=== PATIENT | male | born 1980 ===

== ENCOUNTER 2023-10-09 16:35 | Outpatient (REF) | payer OTHER, SELFPAY ==
[2023-10-09 21:56] LABS: COVID-19 PCR Negative (Negative); Influenza A PCR Negative (Negative); Influenza B PCR Negative (Negative); RSV PCR Negative (Negative); Source Nasopharynx
[2023-10-11 08:45] LABS: Lyme Ab w Rflx to Lyme Confirm Negative (Negative)
[2023-10-13 18:03] LABS: B. miyamotoi PCR Negative (Negative); Babesia divergens/MO-1 Negative (Negative); Babesia duncani Negative (Negative); Babesia microti Negative (Negative); Ehrlichia chaffeensis Negative (Negative); Ehrlichia ewingii/canis Negative (Negative); Ehrlichia muris eauclairensis Negative (Negative)
[2023-10-14 08:40] LABS: Anaplasma phagocytophilum Positive (Negative)
== END 2023-10-09 16:36 | disposition home or self-care (01) ==
LOC: NCHCN 16:35
PROVIDERS: Visit Provider Physician Assistant Medical
DX: R50.9 Fever, unspecified (principal); R07.0 Pain in throat; Z11.8 Encounter for screening for other infectious and parasitic diseases; Z20.828 Contact with and (suspected) exposure to other viral communicable diseases
CPT/HCPCS: 87637; 87798; 86618; 87070

== ENCOUNTER 2023-10-09 19:43 | Emergency (ER) | payer OTHER, SELFPAY ==
[2023-10-09 19:45] VITALS: BP 117/65; PULSE 78; RESP 18; TEMP 37.1; O2SAT 98
--- NOTE | 2023-10-09 20:42 | W.ED.GENAD ---
Discharge Plan Disposition Patient Disposition: Home Condition: Stable Discharge Details Clinical Impression: Fever, Anaplasmosis Primary Care Provider: Unknown,Unknown ED Provider: Radha Lindsay Home Meds and New Rx's Prescriptions: New doxycycline hyclate 100 mg capsule 100 mg PO BID 14 Days Qty: 28 0RF Rx Instructions: Take 1 tablet twice daily for the next 14 days. Discharge Instructions Instructions: Ehrlichia and Anaplasma Infections Additional Instructions: At this time your blood work does show evidence of tickborne illness. This most likely explains why you have been feeling poorly. You may stop the amoxicillin at this time and take only the doxycycline. Take it with yogurt or probiotic as prescribed. Follow up with primary care provider in 3-5 days for follow up regarding lab tests and further evaluation if needed. Return to ED sooner if any worsening fever greater than 100.8 not relieved by Tylenol or ibuprofen, vomiting , or concerns. No evidence of urinary tract infection. Please take Tylenol or Ibuprofen with food every 4-6 hours as needed for pain, fever and swelling. You should feel better after 3 to 5 days of antibiotic. Referrals: [facility] [Provider Group] - 1 week (To establish care here locally for primary care if desired) Primary Care Provider [Outside] - 5 days Discharge Data Discharge Date/Time-TO BE ENTERED AT DEPARTURE: 10/09/23 23:27 HPI General Mode of arrival: ambulatory. Date/Time Provider Initiated Documentation: 10/09/23 19:55. Limitations to Documentation: no limitations. Information obtained by: patient, RN notes reviewed and old records reviewed. HPI Narrative: 42-year-old male presents to the ER with a chief complaint of increased fatigue, fevers for the last 3 weeks. He reports that he is currently on day 3 of amoxicillin or penicillin from the dentist. He was seen at urgent care prior to arrival he states he had blood drawn with a tick and Lyme panel which is pending at this time. I do not have any record of that at this time. He is complaining of increased fatigue, mild headache, decreased appetite and diarrhea. No abscess noted on exam, posterior oropharynx erythemic no exudate he reports that he was just recently tested for COVID flu and strep which was negative. Lungs are clear to auscultation. Related Data Home Medications Medication Instructions Recorded Confirmed doxycycline hyclate 100 mg capsule 100 mg PO BID Anaplasmosis 14 days 10/09/23 #28 caps Previous Rx's Medication Instructions Recorded doxycycline hyclate 100 mg capsule 100 mg PO BID Anaplasmosis 14 days 10/09/23 #28 caps Allergies Allergy/AdvReac Type Severity Reaction Status Date / Time No Known Allergies Allergy Verified 10/09/23 19:50 General Stated Complaint: DentalOral JERMAN: 4 Review of Systems All systems reviewed & are unremarkable except as noted in HPI and below Exam Narrative Exam Narrative: Constitutional: Alert and oriented x3. Appears stated age. Normal body habitus. Head: Normocephalic, no trauma. Eyes: Pupils PERRL, Red reflex noted, EOM's intact. Eyelids symmetrical without lesions, discharge, or swelling. ENT: Bilateral TM's WNL, External ear normal to inspection, no mastoid TTP, swelling, or erythema, Nasal turbinates WNL, no nasal discharge. Normal dentition, Posterior pharynx slightly erythemic, no exudate. Chest: RRR, Normal S1, S2, distal pulses intact. Resp: Lungs clear to auscultation bilaterally, no wheezes, rales, or rhonchi. Abdomen: Soft, non-distended, Normoactive bowel sounds all 4 quads. Musculoskeletal: Normal gait, Moves all 4 extremities without difficulty. Skin: No suspicious rashes or lesions. Capillary refill less than 2 sec. Neurologic: Cranial nerves II-XII intact. Alert and oriented x 3. Motor: No deficits noted. Sensory: Intact bilaterally all 4 extremities. Hematologic/Lymphatic: No ecchymosis, no lymphadenopathy. Course Vital Signs Vital signs: Vital Signs Temperature 37.1 C 10/09/23 19:45 Pulse 78 10/09/23 19:45 Respiratory Rate 18 10/09/23 19:45 Blood Pressure 117/65 10/09/23 19:45 Pulse Oximetry 98 10/09/23 19:45 Temperature 37.1 C 10/09/23 19:45 Temperature Source Temporal Artery Scan 10/09/23 19:45 Pulse 78 10/09/23 19:45 Respiratory Rate 18 10/09/23 19:45 Respiratory Effort Normal, Non-Labored 10/09/23 19:49 Blood Pressure 117/65 10/09/23 19:45 Blood Pressure Position Sitting 10/09/23 19:45 Pulse Oximetry 98 10/09/23 19:45 Oxygen Delivery Method Room Air 10/09/23 19:45 Oxygen Flow Rate 0 10/09/23 19:45 Pain Level 0 10/09/23 19:57 Medical Decision Making 42-year-old male presents to the ER with a chief complaint of increased fatigue, fevers Tmax 102 for the last 3 weeks. He reports that he is currently on day 3 of amoxicillin or penicillin from the dentist. He was seen at urgent care prior to arrival he states he had blood drawn with a tick and Lyme panel which is pending at this time. I do not have any record of that at this time. He is complaining of increased fatigue, mild headache, decreased appetite and diarrhea. No abscess noted on exam, posterior oropharynx erythemic no exudate he reports that he was just recently tested for COVID flu and strep which was negative. Lungs are clear to auscultation. Differential diagnosis includes but not limited to viral illness, hepatitis, UTI, sinusitis, anaplasmosis, tick and Lyme, Workup ordered including CBC CMP blood cultures x 2 lactate and urinalysis. CMP shows normal sodium potassium, glucose 117 calcium 8.1, magnesium 1.9 AST 89 ALT 87 slightly elevated alk phos within normal limits, hepatitis panel added on due to elevated liver enzymes, informed by staff field engineer that patient is complaining of chills and has 100.1 temperature ibuprofen 800 mg ordered. CBC shows leukopenia, platelets are low at 58, lymphocytes low at 0.49, lactate 1.3 which is within normal limits. After review of labs with leukopenia and thrombocytopenia with elevated liver enzymes, clinical presentation is concerning for anaplasmosis. Given 100 mg of doxycycline IV piggyback, will give doxycycline 100 mg twice daily x 14 days. Given instructions on anaplasmosis and tickborne illnesses patient and family verbalized understanding all her questions were answered to the best my ability. At this time he has had a tick and Lyme panel already drawn from an offsite facility and this is pending at this time. Urinalysis shows trace blood no leukocytes no nitrites no evidence of UTI. Patient was discharged with instructions to follow-up closely with PCP regarding further care and treatment. He verbalized understanding. This text was generated using [employer] system, please disregard any oddities of phrase or misspellings. Lab Data Lab results reviewed: Yes I reviewed the patient's lab results. Labs: 10/09/23 21:00 Blood Blood Culture - Pending 10/09/23 21:21 Blood Blood Culture - Pending Laboratory Tests Range/Units 10/09/23 10/09/23 10/09/23 21:00 21:55 22:36 WBC (4.4-10.8) 10^3/uL 3.49 L RBC (4.36-5.78) 10^6/uL 4.86 Hgb (13.5-17.5) g/dL 14.8 Hct (40.0-50.0) % 43.5 MCV (80-95) fL 90 MCH (27.0-33.0) pg 30.5 MCHC (32.0-36.0) % 34.0 RDW (11.8-14.1) % 12.4 Plt Count (130-400) 10^3/uL 58 L MPV (8.0-11.0) fL 11.0 Immature Gran % See Differential Neutrophils % % 25.0 Band Neutrophils % % 52 Lymphocytes % % 13.0 Atypical Lymphs % % 1 Monocytes % % 6.0 Eosinophils % % 0.0 Basophils % % 0.0 Metamyelocytes % 3 Nucleated RBC % (0.0-0.3) % 0.0 Absolute Neutrophils (1.2-6.7) 10^3/uL 2.69 Absolute Lymphocytes (1.2-3.4) 10^3/uL 0.49 L Absolute Monocytes (0.1-0.8) 10^3/uL 0.21 Absolute Eosinophils (0.0-0.7) 10^3/uL 0.00 Absolute Basophils (0.0-0.2) 10^3/uL 0.00 RBC Morphology Normal VBG Lactate (0.6-1.4) mmol/L 1.3 Sodium (136-145) mmol/L 136 Potassium (3.5-5.1) mmol/L 3.9 Chloride (98-107) mmol/L 99 Carbon Dioxide (21.0-32.0) mmol/L 29.5 Anion Gap (3-11) mmol/L 7.5 BUN (7-18) mg/dL 12 Creatinine (0.70-1.30) mg/dL 1.0 Est GFR (CKD-EPI 2020) (mL/min/1.73m2) 95.77 Glucose (74-106) mg/dL 117 H Calcium (8.5-10.1) mg/dL 8.1 L Magnesium (1.8-2.4) mg/dL 1.9 Total Bilirubin (0.2-1.0) mg/dL 0.55 AST (15-37) U/L 89 H ALT (16-63) U/L 87 H Alkaline Phosphatase (46-116) U/L 81 Total Protein (6.4-8.2) g/dL 6.9 Albumin (3.4-5.0) g/dL 3.6 Urine Color (Yellow) Yellow Urine Clarity (Clear) Clear Urine pH (5-8) 6.0 Ur Specific [place] (1.005-1.025) 1.010 Urine Protein (Neg-Trace) mg/dL Negative Urine Ketones (Negative) mg/dL Negative Urine Blood (Negative) Trace-intact H Urine Nitrite (Negative) Negative Urine Bilirubin (Negative) Negative Urine Urobilinogen (Up to 0.2) mg/dL 0.2 Ur Leukocyte Esterase (Negative) Negative Urine RBC (0-2) HPF 3-5 H Urine WBC (0-5) HPF 0-2 Ur Epithelial Cells (Negative) HPF Rare Urine Crystals (Negative) HPF Negative Urine Bacteria (Negative) HPF Negative Urine Mucus (Negative) Negative Ur Culture Indicated? No Urine Glucose (Negative) mg/dL Negative B. divergens/MO-1 PCR Cancelled Babesia duncani (PCR) Cancelled Babesia microti DNA PCR Cancelled Lyme Disease Antibody Cancelled E.chaffeensis DNA (PCR) Cancelled E.ewingii/canis DNA PCR Cancelled E.muris eauclairensis (PCR) Cancelled A. phagocytophilum (PCR) Cancelled Blood B. miyamotoi (PCR) Cancelled Quality:SDOH Health Related Social Needs: No Data to Display PFSH All Active Problems (Updated 10/09/23 @ 22:53 by Radha Lindsay NP) Anaplasmosis (Acute) Fever (Acute) Social History Smoking/Tobacco Use Status: Never Smoking risk assessment performed?: Yes Alcohol Intake: current Alcohol Intake frequency: 0-2 drinks per day Alcohol type: beer Drug use: Never Substance use type: does not use
[2023-10-09] MEDS: Normal Saline 1,000 ML 1000 ML IV (21:06)
[2023-10-09 21:07] LABS: Lactate 1.3 mmol/L (0.6-1.4)
[2023-10-09 21:09] LABS: Abs Immature Grans 0.02 10^3/uL (0.0-0.06); HCT 43.5 % (40.0-50.0); HGB 14.8 g/dL (13.5-17.5); MCH 30.5 pg (27.0-33.0); MCV 90 fL (80-95); RBC 4.86 10^6/uL (4.36-5.78); RDW 12.4 % (11.8-14.1); RDW-SD 41.3 fL; WBC 3.49 10^3/uL (4.4-10.8)
[2023-10-09 21:24] LABS: ALT 87 U/L (16-63); AST 89 U/L (15-37); Albumin 3.6 g/dL (3.4-5.0); Alkaline Phosphatase 81 U/L (46-116); Anion Gap 7.5 mmol/L (3-11); BUN 12 mg/dL (7-18); Bilirubin, Total 0.55 mg/dL (0.2-1.0); CO2 29.5 mmol/L (21.0-32.0); Calcium 8.1 mg/dL (8.5-10.1); Chloride 99 mmol/L (98-107); Estimated GFR 95.77 (mL/min/1.73m2); Glucose 117 mg/dL (74-106); Magnesium 1.9 mg/dL (1.8-2.4); Potassium 3.9 mmol/L (3.5-5.1); Sodium 136 mmol/L (136-145); Total Protein 6.9 g/dL (6.4-8.2)
[2023-10-09 21:31] VITALS: TEMP 37.8
[2023-10-09] MEDS: Ibuprofen 800 MG TAB PO (21:37)
[2023-10-09 21:39] LABS: Absolute Lymphocyte Count 0.49 10^3/uL (1.2-3.4); Absolute Monocyte Count 0.21 10^3/uL (0.1-0.8); Absolute Neutrophil Count 2.69 10^3/uL (1.2-6.7); Atypical Lymphocytes % 1 %; Bands % 52 %; Metamyelocytes % 3; Platelet Count 58 10^3/uL (130-400)
[2023-10-09 21:40] LABS: Diff Comment Manual Differential; RBC Morphology Normal
[2023-10-09] MEDS: Doxycycline Hyclate 100 MG, 2 CAPS/BTL PO (22:29)
[2023-10-09] MEDS: DOXYCYCLINE 100 MG in Normal Saline 100 ML IVPB (22:29)
[2023-10-09 22:40] LABS: Bilirubin Negative (Negative); Blood Trace-intact (Negative); Clarity Clear (Clear); Glucose Negative (Negative); Ketones Negative (Negative); Leukocyte Esterase Negative (Negative); Nitrite Negative (Negative); Urobilinogen 0.2 mg/dL (Up to 0.2)
[2023-10-09 22:49] LABS: Bacteria Negative HPF (Negative); C & S Indicated? No; Crystals Negative HPF (Negative); Epithelial Cells Rare HPF (Negative); Mucus Negative (Negative); WBC 0-2 HPF (0-5)
[2023-10-09 23:24] VITALS: BP 122/75; PULSE 68; RESP 16; O2SAT 98
[2023-10-11 09:36] LABS: Hepatitis A Antibody IgM Negative (Negative); Hepatitis B Core Antibody Negative (Negative); Hepatitis B surface Ag Negative (Negative); Hepatitis C Ab w Rflx HCV PCR Negative (Negative)
== END 2023-10-09 23:27 | disposition home or self-care (01) ==
PROVIDERS: Emergency Provider Registered Nurse Emergency
DX: R50.9 Fever, unspecified (principal); R53.83 Other fatigue; A77.49 Other ehrlichiosis; W57.XXXA Bitten or stung by nonvenomous insect and other nonvenomous arthropods, initial encounter
CPT/HCPCS: 36415; 80053; 86704; 86709; 86803; 87040; 87340; 87798; 96361; 96365; 99284; 81003; 81015; 83605; 83735; 85025; 86618; 99283